=== PATIENT | female | born 1950 | race Caucasian/White ===

== ENCOUNTER 2020-07-10 10:26 | Emergency (ER) | payer MEDICARE, OTHER ==
[2020-07-10] MEDS ORDERED: Aspirin 81 MG Tab.Chew PO ONE (11:34)
--- NOTE | 2020-07-10 11:36 | EDM.PDOC ---
ED HPI GENERAL MEDICAL PROBLEM - General Chief Complaint: Chest Pain Stated Complaint: CHEST PAIN Time Seen by Provider: 07/10/20 10:39 Source of Information: Reports: Patient History Limitations: Reports: No Limitations - History of Present Illness INITIAL COMMENTS - FREE TEXT/NARRATIVE: Presents with onset of chest pain last evening around 10:00 while at rest. Chest pain was dull achy started in the left upper quadrant radiating to the left side of the chest and then into her left shoulder and proximal left arm. Not associated with any diaphoresis nausea vomiting lightheadedness syncope or shortness of breath. She took aspirin yesterday evening and slept but was somewhat unrestful as intermittently she would wake up with chest pain. This morning she continued to have it and it occasionally would go into her left jaw. Not really feeling diaphoretic or any weakness no increasing work of breathing or shortness of breath no fevers chills or sweats no coughing or cold symptoms no Covid symptoms no vomiting or diarrhea no burning pain or blood in the urine non-smoker no history of high blood pressure diabetes or high cholesterol, does have a family history of heart disease in both her younger brother having a heart attack at age 43 and her father with onset of heart attack at age 73. No history of any PE risk factors she did note left posterior knee pain about a week ago but resolved without swelling. Chest Pain Score (Numeric/FACES): 5 - Related Data Allergies Allergy/AdvReac Type Severity Reaction Status Date / Time No Known Allergies Allergy Verified 07/10/20 10:37 Past Medical History - Past Surgical History Female Surgical History: Reports: Cystoscopy Social & Family History - Tobacco Use Tobacco Use Status *Q: Never Tobacco User ED ROS GENERAL - Review of Systems Review Of Systems: See Below Constitutional: Denies: Fever, Chills, Diaphoresis HEENT: Denies: Rhinitis, Vision Change Respiratory: Denies: Shortness of Breath, Cough Cardiovascular: Reports: Chest Pain, Blood Pressure Problem. Denies: Dyspnea on Exertion, Lightheadedness, Orthopnea, Palpitations, PND GI/Abdominal: Reports: No Symptoms. Denies: Constipation, Diarrhea, Decreased Appetite, Distension, Nausea, Vomiting Musculoskeletal: Reports: No Symptoms Skin: Reports: No Symptoms Neurological: Reports: No Symptoms. Denies: Dizziness, Headache Psychiatric: Reports: No Symptoms ED EXAM, GENERAL - Physical Exam Exam: See Below Exam Limited By: No Limitations General Appearance: Alert, WD/WN, No Apparent Distress Throat/Mouth: Normal Oropharynx Head: Atraumatic Neck: Normal Inspection, Supple Respiratory/Chest: No Respiratory Distress, Lungs Clear, Normal Breath Sounds Cardiovascular: Normal Peripheral Pulses, Regular Rate, Rhythm, No Edema, No JVD Peripheral Pulses: 2+: Radial (L), Radial (R) GI/Abdominal: Normal Bowel Sounds, Soft, Non-Tender, No Organomegaly, No Distention Extremities: Normal Inspection, No Pedal Edema Neurological: Alert, Oriented, CN II-XII Intact, No Motor/Sensory Deficits Psychiatric: Normal Affect #1 Interpretation EKG Date: 07/10/20 Time: 10:34 Rhythm: NSR Rate (Beats/Min): 73 EKG Interpretation Comments: I reviewed EKG showing sinus rhythm rate of 73 ND 141 QRS is 80 QT corrected 451 PAC otherwise no acute findings are noted Course - Vital Signs Text/Narrative:: Chest pain rule out acute coronary syndrome seems less likely aortic dissection or PE although still in the differential, may be gastrointestinal in etiology pancreatitis acute cholecystitis biliary colic Last Recorded V/S: Last Vital Signs Temp 97.2 F 07/10/20 10:35 Pulse 71 07/10/20 10:35 Resp 18 07/10/20 10:35 BP 165/92 H 07/10/20 10:35 Pulse Ox 98 07/10/20 10:35 - Orders/Labs/Meds Orders: Active Orders 24 hr Category Date Time Status Cardiac Monitoring [RC] . DIRECTED Care 07/10/20 11:34 Active Labs: Laboratory Tests 07/10/20 07/10/20 07/10/20 Range/Units 10:38 10:38 10:38 WBC 5.70 (3.98-10.04) K/mm3 RBC 4.69 (3.98-5.22) M/mm3 Hgb 14.8 (11.2-15.7) gm/dl Hct 44.2 (34.1-44.9) % MCV 94.2 (79.4-94.8) fl MCH 31.6 (25.6-32.2) pg MCHC 33.5 (32.2-35.5) g/dl RDW Std Deviation 41.9 (36.4-46.3) fL Plt Count 227 (182-369) K/mm3 MPV 9.7 (9.4-12.3) fl Neut % (Auto) 48.9 (34.0-71.1) % Lymph % (Auto) 41.1 (19.3-51.7) % Adams % (Auto) 7.0 (4.7-12.5) % Eos % (Auto) 2.1 (0.7-5.8) Baso % (Auto) 0.9 (0.1-1.2) % Neut # (Auto) 2.79 (1.56-6.13) K/mm3 Lymph # (Auto) 2.34 (1.18-3.74) K/mm3 Adams # (Auto) 0.40 H (0.24-0.36) K/mm3 Eos # (Auto) 0.12 (0.04-0.36) K/mm3 Baso # (Auto) 0.05 (0.01-0.08) K/mm3 D-Dimer, Quantitative 0.21 (0.19-0.50) mg/L Sodium 139 (136-145) mEq/L Potassium 4.5 (3.5-5.1) mEq/L Chloride 102 (98-107) mEq/L Carbon Dioxide 26 (21-32) mEq/L Anion Gap 15.5 H (5-15) BUN 14 (7-18) mg/dL Creatinine 1.0 (0.55-1.02) mg/dL Est Cr Clr Drug Dosing 53.56 mL/min Estimated GFR (MDRD) 55 (>60) mL/min BUN/Creatinine Ratio 14.0 (14-18) Glucose 95 (70-99) mg/dL Calcium 8.9 (8.5-10.1) mg/dL Total Bilirubin 0.6 (0.2-1.0) mg/dL AST 24 (15-37) U/L ALT 20 (14-59) U/L Alkaline Phosphatase 76 (46-116) U/L Troponin I < 0.017 (0.00-0.056) ng/mL Total Protein 7.9 (6.4-8.2) g/dl Albumin 4.0 (3.4-5.0) g/dl Globulin 3.9 gm/dL Albumin/Globulin Ratio 1.0 (1-2) Lipase 136 (73-393) U/L Reviewed labs white count 5700 hemoglobin 14.8 hematocrit 44.2 platelet count is 227,000 D-dimer 0.21 sodium 139 potassium 4.5 chloride 102 CO2 26 BUN 14 creatinine 1 glucose is 95 LFTs are normal troponin negative protein stores are normal Meds: Medications Discontinued Medications Generic Name Dose Route Start Last Admin Trade Name Fabby PRN Reason Stop Dose Admin Aspirin 324 mg 07/10/20 11:34 07/10/20 11:52 Aspirin 81 Mg Tab.Chew PO 07/10/20 11:35 324 mg ONETIME ONE Administration - Radiology Interpretation Free Text/Narrative:: Chest x-ray is within normal limits no acute findings. - Re-Assessments/Exams Free Text/Narrative Re-Assessment/Exam: 07/10/20 12:38 Patient currently is chest pain-free heart score is low, we will set her up for cardiology evaluation with Dr. Bar calero at [facility] on August 04 she will need to be there at about 1215 to check-in and then get her labs drawn at 1230 echocardiogram at 1:00 and then visit with the silver cleaner at 2:00 on August 04. Patient is instructed to monitor blood pressure twice a day and record as well as her pulse, return if any increasing chest pain especially associated with lightheadedness dizziness sweating nausea weakness fainting spell or any worsening. Make Sure to take aspirin if any chest pain occurs Departure - Departure Time of Disposition: 12:45 Disposition: Home, Self-Care 01 Condition: Good Clinical Impression: Atypical chest pain, Elevated blood pressure reading Instructions: Nonspecific Chest Pain, Adult, Preventing Hypertension Referrals: PCP,None [Primary Care Provider] - Forms: ED Department Discharge Additional Instructions: Try to avoid excessive salt intake monitor blood pressure and pulse twice a day, recommended follow-up and appointment is made at the cardiovascular center at [facility] in [place] with Dr. Cruz. The phone number to the office is area code [phone] will need to be there around 12 or 1215 to check in at the hospital unit receptionist area, you will be getting blood tests at 1230 and then echocardiogram at 1:00. Do not eat or drink anything in the morning prior to your test Consider taking a baby aspirin daily for protection, return to the emergency room or call 9 1 with any recurrent chest pain especially if is associated with any lightheadedness dizziness fainting spell sweats shortness of breath or worsening. Sepsis Event Note (ED) - Evaluation Sepsis Screening Result: No Definite Risk - Focused Exam Vital Signs: Vital Signs Temp Pulse Resp BP Pulse Ox 07/10/20 10:35 97.2 F 71 18 165/92 H 98 - My Orders Last 24 Hours: My Active Orders 07/10/20 11:34 Cardiac Monitoring [RC] . DIRECTED - Assessment/Plan Last 24 Hours: My Active Orders 07/10/20 11:34 Cardiac Monitoring [RC] . DIRECTED
--- NOTE | 2020-07-10 12:01 | CR ---
Chest: Portable view of the chest was obtained. Comparison: No prior chest imaging is available. Heart size and mediastinum are normal. Lungs are clear with no acute parenchymal change. No acute osseous abnormality is appreciated. Impression: 1. Nothing acute is seen on portable chest x-ray. Diagnostic code #1
== END 2020-07-10 13:10 | disposition home or self-care (01) ==
LOC: JD.ED 10:26
DX: R07.89 Other chest pain (principal); R03.0 Elevated blood-pressure reading, without diagnosis of hypertension
CPT/HCPCS: 36415; 71045; 80053; 83690; 84484; 85025; 85379; 99285; A9270; 93010; 99283